=== PATIENT | male | born 1985 | race Caucasian/White ===

== ENCOUNTER 2016-10-27 18:13 | Inpatient (IN) | payer OTHER ==
[~2016-10-27] VITALS: Ht 175.3 cm; Wt 77.6 kg
[2016-10-27 18:30] VITALS: BP 162/91
[2016-10-27 19:18] LABS: BILIRUBIN NEGATIVE (NEGATIVE); BLOOD TRACE-INTACT (NEGATIVE); CLARITY CLEAR (CLEAR); COLOR YELLOW (YELLOW); GLUCOSE NEGATIVE (NEGATIVE); KETONE TRACE (NEGATIVE); LEUKO ESTERASE NEGATIVE (NEGATIVE); NITRITE NEGATIVE (NEGATIVE); PROTEIN NEGATIVE (NEGATIVE)
[2016-10-27 19:23] LABS: URINE AMPHETAMINES < 1000 (1000ng/ml); URINE BARBITURATES < 200 (200ng/ml); URINE COCAINE > 300 (300ng/ml)
[2016-10-27 19:24] LABS: BASO % 0.6 % (0.0-1.0); EOS # 0.4 10*3/uL (0.0-0.4); EOS % 6.4 % (1.0-4.0); HEMATOCRIT 42.5 % (42.0-52.0); HEMOGLOBIN 13.2 g/dl (14.0-18.0); LYMPH # 2.3 10*3/uL (1.3-4.4); LYMPH % 35.3 % (27.0-41.0); MEAN CELL VOLUME 92.4 fl (80.0-94.0); MEAN CORPUSCULAR HGB 28.7 pg (27.0-31.0); MEAN CORPUSCULAR HGB CONC 31.1 g/dl (33.0-37.0); MEAN PLATELET VOLUME 9.1 fl (9.6-12.3); MONO # 0.6 10*3/uL (0.1-1.0); MONO % 9.2 % (3.0-9.0); NEUT # 3.1 10*3/uL (2.3-7.9); NEUT % 48.3 % (47.0-73.0); PLATELET COUNT AUTOMATED 226 10*3/uL (130-400); RED CELL DISTRI WIDTH 12.8 % (0-14.5); WHITE BLOOD COUNT 6.4 10*3/uL (4.8-10.8)
[2016-10-27 19:27] LABS: WBC 0-2 wbc/hpf (0-5)
[2016-10-27 19:29] LABS: BACTERIA 1+; URINE REFLEX COMMENT NO (NO)
[2016-10-27 19:39] LABS: PROTHROMBIN TIME 10.8 SECONDS (9.0-12.4)
[2016-10-27 19:40] LABS: ALBUMIN 3.6 gm/dl (3.1-4.5); ALKALINE PHOSPHATASE 59 U/L (45-117); BILIRUBIN, TOTAL 0.2 mg/dl (0.2-1.0); BUN 12 mg/dl (7-24); CARBON DIOXIDE 27 mmol/L (21-32); CHLORIDE 101 mmol/L (98-107); EST GLOM FILT AFRICAN AMERICAN > 60 ml/min; GLUCOSE 118 mg/dL (65-99); POTASSIUM 3.8 mmol/L (3.5-5.1); SGOT/AST 18 IU/L (3-35); SGPT/ALT 31 U/L (12-78); SODIUM 140 mmol/L (136-145); TOTAL PROTEIN 7.5 gm/dL (6.4-8.2)
[2016-10-27 20:00] VITALS: BP 144/84
[2016-10-28] VITALS: BP 135/72
[2016-10-28 04:00] VITALS: BP 146/80
[2016-10-28 08:10] VITALS: BP 138/80
[2016-10-28 12:15] VITALS: BP 146/86
[2016-10-28 16:00] VITALS: BP 149/89
[2016-10-28 20:00] VITALS: BP 149/80
[2016-10-29] VITALS: BP 140/82
[2016-10-29 08:00] VITALS: BP 140/90
[2016-10-29 16:00] VITALS: BP 166/78
[2016-10-29 20:00] VITALS: BP 151/90
[2016-10-30] VITALS: BP 139/90
[2016-10-30 07:07] LABS: EOS # 0.3 10*3/uL (0.0-0.4); HEMATOCRIT 44.9 % (42.0-52.0); HEMOGLOBIN 14.3 g/dl (14.0-18.0); LYMPH % 47.8 % (27.0-41.0); MEAN CELL VOLUME 90.5 fl (80.0-94.0); MEAN CORPUSCULAR HGB 28.8 pg (27.0-31.0); MEAN CORPUSCULAR HGB CONC 31.8 g/dl (33.0-37.0); MEAN PLATELET VOLUME 9.9 fl (9.6-12.3); MONO # 0.3 10*3/uL (0.1-1.0); NEUT # 1.5 10*3/uL (2.3-7.9); NEUT % 35.7 % (47.0-73.0); PLATELET COUNT AUTOMATED 247 10*3/uL (130-400); RED BLOOD COUNT 4.96 10*6/uL (4.50-5.90); RED CELL DISTRI WIDTH 12.7 % (0-14.5); WHITE BLOOD COUNT 4.1 10*3/uL (4.8-10.8)
[2016-10-30 07:36] LABS: EST GLOM FILT AFRICAN AMERICAN > 60 ml/min
[2016-10-30 08:00] VITALS: BP 150/80
[2016-10-30 12:00] VITALS: BP 146/80
[2016-10-30 16:00] VITALS: BP 142/72
[2016-10-30 20:00] VITALS: BP 157/83
[2016-10-31] VITALS: BP 152/81
[2016-10-31 08:00] VITALS: BP 151/73
[2016-10-31 16:00] VITALS: BP 141/83
[2016-10-31 20:00] VITALS: BP 145/71
[2016-11-01] VITALS: BP 138/81
[2016-11-01 07:40] LABS: HEPATITIS C VIRUS ANTIBODY >11.0 s/co (0.0-0.9)
[2016-11-01 08:00] VITALS: BP 134/86
[2016-11-01] MEDS ORDERED: CARBIDOPA/LEVOD1 TA1 PO (09:55)
[2016-11-01] MEDS ORDERED: ATARAX,VISTARIL50 MG PO (09:55)
[2016-11-01] MEDS ORDERED: ZOFRAN 4 MG ED2 TAB PO (09:55)
== END 2016-11-01 13:00 | disposition home or self-care (01) | DRG 897 ==
LOC: 5E 18:13
PROVIDERS: Hospitalist; Internal Medicine
DX: F11.23 Opioid dependence with withdrawal (principal); F14.10 Cocaine abuse, uncomplicated; F12.10 Cannabis abuse, uncomplicated; F17.200 Nicotine dependence, unspecified, uncomplicated; Z71.6 Tobacco abuse counseling; Z68.25 Body mass index [BMI] 25.0-25.9, adult